=== PATIENT | male | born 1950 | race Caucasian/White ===

== ENCOUNTER 2016-10-06 08:21 | Day surgery (SDC) | payer MEDICARE, BC ==
--- NOTE | ~2016-10-06 | OP ---
Record Of Operation [facility] [address] [place]. [address] NAME: DAISHA QUIÑONEZ : 50 STATUS : [facility]#: [id number] AGE: 66 ADM/REG DATE : 10/06/16 MR#: [id number] REPORT SERV DATE: 10/10/16 DICTATED BY: CARTER SANCHEZ DATE: 10/10/16 REPORT STATUS : Draft TRANSCRIBED BY: MODL DATE: 10/10/16 DATE OF PROCEDURE: 10/06/2016 PREOPERATIVE DIAGNOSIS: Postoperative hematoma, right inguinal hernia repair site. POSTOPERATIVE DIAGNOSES: Postoperative hematoma, right inguinal hernia repair site. PROCEDURE: Incision and drainage, irrigation, culture and packing of postoperative hematoma right inguinal hernia repair site. SURGEON: Carter Sanchez M.D. DESCRIPTION OF OPERATIVE PROCEDURE: The patient is several weeks following laparoscopic bilateral inguinal hernia repair. He had a large indirect hernia on the right and after reduction of this hernia, it was noted that the patient had the unfortunately developed a large postoperative hematoma/seroma in the right inguinal canal. The aspiration attempts in the office were futile due to the thick nature of the hematoma and due to the patient's unremitting pain, decision was made to proceed with evacuation. The patient was brought to operating suite, placed in supine position, underwent anesthesia without incident. The skin of the right inguinal femoral area was scrubbed, prepped, and draped in usual sterile fashion. About 0.5% Marcaine with epinephrine was utilized as supplemental local anesthesia. A transverse skin incision was performed dissecting through the skin, subcutaneous tissue, dissecting through Alfred's fascia. There was immediate note of a large gelatinous "currant jelly" hematoma that was organizing. It was evacuated bluntly and with copious irrigation. There was no oozing, and there was no hernia recurrence. In fact, the hernia repair was intact which had been performed laparoscopically. A C and S was performed. Then, the wound was irrigated again and debrided bluntly with a gauze 4 x 4. Moist Kerlix rolled gauze packing was placed in the wound followed by ABD pad, and Medipore tape. The patient tolerated the procedure well, was returned to PACU in stable condition. At the termination of procedure, sponge, needle, lap instrument counts were correct x3. ESTIMATED BLOOD LOSS: Less than 10-15 mL from the actual procedure. WR/ROBERTO CARLOSL Carter Sanchez M.D. Record Of Operation [facility] [address] [facility] [place] [address] NAME: DAISHA QUIÑONEZ : 50 STATUS : [facility] PAT#: [id number] AGE: 66 ADM/REG DATE : 10/06/16 MR#: [id number] REPORT SERV DATE: 10/10/16 DICTATED BY: CARTER SANCHEZ DATE: 10/10/16 REPORT STATUS : Draft TRANSCRIBED BY: TIM DATE: 10/10/16 / [id number] CC: Tevin Lopez M.D.
[~2016-10-06 08:21] MED LIST: ASAB PO; CRESTOR40 MG PO; FIBERCON PO; FLEX PO; MIRALAXPKT PO; MULTIPLE VIT PO; PLAVIX PO
[2016-10-06 09:42] LABS: HEMOGLOBIN 10.2 g/dL (13.6-17.8)
[2016-10-06 09:45] LABS: HEMATOCRIT 30.8 % (40.0-51.0)
[2016-10-06 10:10] LABS: BUN (BLOOD UREA NITROGEN) 10 MG/DL (6-23); CALCIUM, SERUM 9.3 MG/DL (8.5-10.4); CHLORIDE, SERUM 103 MMOL/L (96-112); CO2 (CARBON DIOXIDE) 30 MMOL/L (24-34); CREATININE 0.89 MG/DL (0.70-1.30); GFR AFRICAN AMERICAN 103 ML/MIN (>=60); GFR NON AFRICAN AMERICAN 89 ML/MIN (>=60); GLUCOSE, SERUM 93 MG/DL (60-99); POTASSIUM, SERUM 4.4 MMOL/L (3.5-5.3); SODIUM, SERUM 142 MMOL/L (135-148)
== END 2016-10-06 16:08 | disposition home or self-care (01) ==
LOC: SDC 08:21
PROVIDERS: Specialist
PROC: 099R3ZZ Drainage of Left Maxillary Sinus, Percutaneous Approach (ICD-10-PCS; 2016-10-06)
PROC: 099Q3ZZ Drainage of Right Maxillary Sinus, Percutaneous Approach (ICD-10-PCS; 2016-10-06)
PROC: 09QM4ZZ Repair Nasal Septum, Percutaneous Endoscopic Approach (ICD-10-PCS; principal; 2016-10-06 09:30)
DX: J32.0 Chronic maxillary sinusitis (principal); J34.2 Deviated nasal septum; I10 Essential (primary) hypertension; K21.9 Gastro-esophageal reflux disease without esophagitis; Z85.6 Personal history of leukemia; Z92.21 Personal history of antineoplastic chemotherapy; Z79.82 Long term (current) use of aspirin; Z79.899 Other long term (current) drug therapy; Z88.5 Allergy status to narcotic agent
CPT/HCPCS: 80048; 85014; 85018; 87070; 87075; 87205; A9270-GY; J0690; J2250; J2370; J2405; J3010

== ENCOUNTER 2017-01-16 21:16 | Inpatient (IN) | payer MEDICARE, BC ==
--- NOTE | ~2017-01-16 | DS ---
Discharge Summary [facility] [address] [place]. [address] NAME: DAISHA QUIÑONEZ : 50 STATUS : DIS IN PAT#: [id number] AGE: 66 ADM/REG DATE : 01/16/17 MR#: [id number] REPORT SERV DATE: 01/19/17 DICTATED BY: KALYN VIZCAINO DATE: 01/18/17 REPORT STATUS : Draft TRANSCRIBED BY: MODL DATE: 01/18/17 ADMISSION DATE: 01/16/2017 DISCHARGE DATE: 01/18/2017 DISCHARGE DIAGNOSES: 1. Symptomatic anemia, present on admission, improved. 2. Thrombocytopenia, present on admission. 3. Chronic monocytic leukemia, followed by Dr. Washburn. 4. Chest pain due to symptomatic anemia. 5. Acute kidney injury, resolved. CONSULTATION: Oncology, Dr. Washburn. LABORATORY DATA: WBC is 25.6, hemoglobin 8.7, hematocrit 25.9, platelet count is 49. IMAGIN. Chest x-ray, 01/16/2017: Impression, no acute process. 2. Abdominal ultrasound, 01/17/2017: Impression, gallbladder removed. Common bile duct normal. Kidneys unremarkable. No obstruction. Pancreas normal. Mild progression in splenomegaly. Aorta and vena cava unremarkable. 3. Chest x-ray, 01/17/2017: Impression, no acute cardiopulmonary. 4. Nuclear stress test. 5. Imaging demonstrated no ischemia. Post effusion LVEF 56%. Overall low risk of vasodilator stress test. COURSE OF HOSPITAL STAY: Please refer to history and physical dictated by Dr. Chris Alves on 01/17/2017 for complete admission details as well as consultation note by Dr. Washburn. This patient is a 66-year-old male, who presented to [facility] emergency room with complaints of near syncope, fatigue, chest pain, and worsening anemia. He does present with a history of chronic monocytic leukemia, followed by Dr. Washburn. The patient was evaluated. Imaging obtained, which is noted above as well as lab work. The patient's hemoglobin upon admission was 7.3 and hematocrit of 21.9. The patient was typed and crossed for two units of blood, which he received. He did undergo the above procedures. Following the patient's blood, the patient denied chest pain, was able to ambulate without difficulty. The patient will follow up with Dr. Washburn outpatient, do believe that symptoms were due to the patient's anemia. The patient's acute kidney injury was resolved. Chest pain resolved. Anemia and thrombocytopenia will be followed by Dr. Washburn. This discharge took less than 30 minutes. /TIM Discharge Summary [address] [address] NAME: DAISHA QUIÑONEZ : 50 STATUS : DIS IN PAT#: [id number] AGE: 66 ADM/REG DATE : 01/16/17 MR#: [id number] REPORT SERV DATE: 01/19/17 DICTATED BY: KALYN VIZCAINO DATE: 01/18/17 REPORT STATUS : Draft TRANSCRIBED BY: TIM DATE: 01/18/17 Kalyn Vizcaino NP / [id number] CC: MD Tyson Sherwood M.D.
--- NOTE | ~2017-01-16 | HP ---
History And Physical [address] [place]. [address] NAME: DAISHA QUIÑONEZ : 50 STATUS : ADM IN [facility]#: [id number] AGE: 66 ADM/REG DATE : 01/16/17 MR#: [id number] REPORT SERV DATE: 01/17/17 DICTATED BY: LEBRON DELGADILLO DATE: 01/17/17 REPORT STATUS : Draft TRANSCRIBED BY: MODL DATE: 01/17/17 DATE OF ADMISSION: 01/16/2017 CHIEF COMPLAINT: A 66-year-old male presenting with near syncope, fatigue, and chest pain, evidence of worsening anemia. HISTORY OF PRESENTING ILLNESS: The patient's history was obtained through an interview with the patient and , coupled with review of [facility] medical records. The patient has noticed increasing fatigue over the last month or so, but it has not been too debilitating and has not limited him from his regular activities. In fact, just on 01/13/2017, he played a complete game of golf without too much disability or complaints. But on the evening of admission, he was walking (which is his usual habit) with his when he became "pale in color" and developed exertional chest discomfort. He describes chest discomfort is in the middle of his chest, radiation to his bilateral neck area, a tightness quality, 5/10 severity that was relieved by resting. He had no associated shortness of breath. No nausea or vomiting. No palpitations. No lightheadedness. No dizziness. He has noticed over the last month or so increasing abdominal "bloating" with a slight left midquadrant abdominal discomfort, worsened by deep breathing, about 4 to 5 out of 10 severity only. REVIEW OF SYSTEMS: Otherwise, a 14-point review of systems was obtained and was negative. PAST MEDICAL HISTORY: 1. Chronic monocytic leukemia, followed by Dr. Washburn. We have documented white blood cell count of about 12.8 a year ago. 2. Coronary artery disease, status post stent placement x3, followed by Dr. Hendrickson. 3. Left bundle-branch block. 4. Macrocytic anemia. 5. Mild splenomegaly, 2016. 6. Cholelithiasis. 7. Prostate cancer, 2007, status post surgery, but no chemotherapy, no radiation. 8. No lung disease history. PAST SURGICAL HISTORY: 1. Right hernia repair. 2. Prostatectomy. ALLERGIES: NO KNOWN DRUG ALLERGIES. History And Physical [address] [address] NAME: DAISHA QUIÑONEZ : 50 STATUS : ADM IN PAT#: [id number] AGE: 66 ADM/REG DATE : 01/16/17 MR#: [id number] REPORT SERV DATE: 01/17/17 DICTATED BY: LEBRON DELGADILLO DATE: 01/17/17 REPORT STATUS : Draft TRANSCRIBED BY: TIM DATE: 01/17/17 SOCIAL HISTORY: Quit smoking about 40 years ago. Drinks occasional beer. Is . Has two children. He is semiretired. 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 FAMILY HISTORY: Brother and mother both had CABG. Father with coronary artery disease as well. There is no family history of blood disorders. CURRENT MEDICATIONS: Include aspirin 81 mg p.o. daily, Plavix 75 mg p.o. daily, multivitamin, Crestor 40 mg p.o. daily, some kind of [id number] medication? PHYSICAL EXAMINATION: VITAL SIGNS: Temperature 97.6, pulse 96, blood pressure 120/59, respiratory rate 16, O2 saturation 97% on room air. GENERAL: A nontoxic-appearing, an appropriate, cooperative male, in no evidence of distress. HEENT: Pupils equal, round, and reactive to light. The patient has conjunctival pallor, but no scleral icterus. Nares are patent. Oropharynx is clear of obstruction. Moist mucous membranes. NECK: Trachea midline. No thyromegaly. LYMPH: No cervical lymphadenopathy. No supraclavicular lymphadenopathy. RESPIRATORY: Clear to auscultation at bases. No wheezes, rales, or rhonchi. Normal respiratory effort. CARDIOVASCULAR: Regular rate and rhythm. No murmurs, rubs, or gallops. No extremity edema is appreciated. ABDOMEN: The patient does have a palpable spleen that is minimally tender to palpation. No distention otherwise. No tenderness otherwise. No appreciable hepatomegaly. DERMATOLOGICAL: Warm and dry extremities. The patient has peripheral pallor, but no cyanosis. PSYCHIATRIC: Normal affect. Good mood. Alert and oriented x3. LABORATORY DATA: White blood cell count 32.5 with elevated monocytes and elevated neutrophils, hemoglobin 7.3, hematocrit 21.9 with MCV of 108. INR 1.7. Sodium 141, potassium 3.9, chloride 105, bicarb 28, BUN 11, creatinine 1.25 from baseline creatinine of 0.8, glucose 110, troponin negative. STUDIES: 1. Chest x-ray by my own evaluation shows no acute cardiopulmonary process. 2. EKG by my own evaluation shows sinus rhythm with left bundle-branch block. ASSESSMENT AND PLAN: 1. Symptomatic anemia. We will transfuse blood. Check reticulocyte count. Check LDH and haptoglobin. Check a peripheral smear. Check an ultrasound of the abdomen. 2. Thrombocytopenia. Follow closely. Check ultrasound of the abdomen to evaluate possible splenomegaly. 3. Monocytic chronic leukemia. There is always the possibility of progression to AML? We will consult oncologist, Dr. Washburn. I did discuss the case with Dr. Arteaga over the phone this evening. History And Physical [address] [address] NAME: DAISHA QUIÑONEZ : 50 STATUS : ADM IN [facility]#: [id number] AGE: 66 ADM/REG DATE : 01/16/17 MR#: [id number] REPORT SERV DATE: 01/17/17 DICTATED BY: LEBRON DELGADILLO DATE: 01/17/17 REPORT STATUS : Draft TRANSCRIBED BY: MODL DATE: 01/17/17 4. Chest pain with history of coronary artery disease with multiple stents. We will check a stress test. Continue Plavix and aspirin for now until able to rule out active coronary artery disease. 5. Acute kidney injury. Give blood transfusion, give IV fluids, and monitor. KPL/MODL Lebron Delgadillo M.D. / [id number] CC: Tevin Acevedo M.D. David Wendt, M.D. Mark S Womack IV, M.D.
[2017-01-16 21:39] LABS: INTERNATIONAL NORMAL RATI 1.7 UNITS (-); PARTIAL THROMBO TIME 35.6 SEC (22.5-37.2); PROTIME (NOT ORD) 19.6 SEC (12.0-14.5)
[2017-01-16 21:40] LABS: MEAN CORPUS HGB CONC 33.3 g/dL (32.0-36.0); MEAN CORPUSCULAR HEMOGLOB 36.1 pg (26.0-34.0); MEAN CORPUSCULAR VOLUME 108.4 fL (80-100); MEAN PLATELET VOLUME 9.3 fL (9.2-13.0); NUCLEATED RED BLOOD CELLS 1.2 /100WBC (0-0); RBC DISTRIBUTION WIDTH 18.2 % (12.0-16.0)
[2017-01-16 21:41] LABS: ER CBC TAT 0 Hrs 16 Mins; HEMATOCRIT 21.9 % (40.0-51.0); HEMOGLOBIN 7.3 g/dL (13.6-17.8); PLATELET COUNT 64 10/3/uL (150-400); RED CELL COUNT 2.02 10/6/uL (4.7-6.1); WHITE BLOOD CELLS 32.5 10/3/uL (4.5-10.5)
[2017-01-16 21:42] LABS: MANUAL DIFF YES %
[2017-01-16 21:45] LABS: BUN (BLOOD UREA NITROGEN) 11 MG/DL (6-23); CALCIUM, SERUM 8.7 MG/DL (8.5-10.4); CHEST PAIN PROFILE TAT 0 Hrs 20 Mins; CHLORIDE, SERUM 105 MMOL/L (96-112); CO2 (CARBON DIOXIDE) 28 MMOL/L (24-34); CREATININE 1.25 MG/DL (0.70-1.30); GFR AFRICAN AMERICAN 69 ML/MIN (>=60); GFR NON AFRICAN AMERICAN 60 ML/MIN (>=60); GLUCOSE, SERUM 110 MG/DL (60-99); POTASSIUM, SERUM 3.9 MMOL/L (3.5-5.3); SODIUM, SERUM 141 MMOL/L (135-148); TROPONIN I <0.02 NG/ML (<0.05)
[2017-01-16 22:03] LABS: BAND NEUTROPHILS 9 %; ER DIFF TAT 0 Hrs 38 Mins; IMMATURE GRANS ABSOLUTE (CALC) 0.98 10/3/uL (0.0-0.11); LYMPHOCYTES 15 %; LYMPHOCYTES ABSOLUTE (CALC) 4.88 10/3/uL (0.67-4.30); MACROCYTES 1+ (5-10/OIF) (0-5/OIF); METAMYELOCYTES 3 %; MONOCYTES 17 %; MONOCYTES ABSOLUTE (CALC) 5.53 10/3/uL (0.21-1.20); NEUTROPHILS ABSOLUTE (CALC) 21.13 10/3/uL (2.02-8.40); SEGMENTED NEUTROPHIL (0) 56 %; TOTAL NUCLEATED CELLS 100
[2017-01-16 22:04] LABS: ANISOCYTOSIS 1+ (5-10/OIF) (0-5/OIF); PATH REVIEW YES; PLATELET ESTIMATE DEC (ADEQUATE); POLYCHROMASIA 1+ (2-5/OIF) (0-1/OIF)
[2017-01-16] MEDS ORDERED: CRESTOR40 MG PO (23:19)
[2017-01-16] MEDS ORDERED: ASAB PO (23:19)
[2017-01-16] MEDS ORDERED: PLAVIX PO (23:19)
[2017-01-16] MEDS ORDERED: [UNRECOGNIZED DRUG - OTHER] PO (23:20)
[2017-01-16] MEDS ORDERED: MULTIVIT/MIN PO (23:21)
[2017-01-17 06:38] LABS: HEMATOCRIT 22.2 % (40.0-51.0); HEMOGLOBIN 7.3 g/dL (13.6-17.8); MEAN CORPUS HGB CONC 32.9 g/dL (32.0-36.0); MEAN CORPUSCULAR HEMOGLOB 34.6 pg (26.0-34.0); MEAN CORPUSCULAR VOLUME 105.2 fL (80-100); MEAN PLATELET VOLUME 9.3 fL (9.2-13.0); PLATELET COUNT 54 10/3/uL (150-400); RED CELL COUNT 2.11 10/6/uL (4.7-6.1); RETICULOCYTE COUNT 2.6 % (0.5-2.5)
[2017-01-17 06:39] LABS: RETICULOCYTE COUNT ABSOLUTE 54.9 10/3/uL (20.2-119.8); WHITE BLOOD CELLS 27.9 10/3/uL (4.5-10.5)
[2017-01-17 06:40] LABS: INTERNATIONAL NORMAL RATI 1.8 UNITS (-); MANUAL DIFF YES %; PARTIAL THROMBO TIME 36.1 SEC (22.5-37.2); PROTIME (NOT ORD) 20.7 SEC (12.0-14.5)
[2017-01-17 07:03] LABS: A/G RATIO 1.2 (0.7-1.9); ALBUMIN 3.4 G/DL (3.5-5.0); ALKALINE PHOSPHATASE 90 U/L (45-117); BUN (BLOOD UREA NITROGEN) 11 MG/DL (6-23); CALCIUM, SERUM 8.5 MG/DL (8.5-10.4); CHLORIDE, SERUM 106 MMOL/L (96-112); CO2 (CARBON DIOXIDE) 29 MMOL/L (24-34); CREATININE 1.03 MG/DL (0.70-1.30); GFR AFRICAN AMERICAN 87 ML/MIN (>=60); GFR NON AFRICAN AMERICAN 75 ML/MIN (>=60); GLOBULIN 2.8 G/DL (2.5-4.1); GLUCOSE, SERUM 92 MG/DL (60-99); POTASSIUM, SERUM 3.9 MMOL/L (3.5-5.3); SGOT(AST) 17 U/L (5-40); SGPT(ALT) 13 U/L (5-65); SODIUM, SERUM 143 MMOL/L (135-148); TOTAL BILIRUBIN 0.4 MG/DL (0-1.2); TOTAL PROTEIN 6.2 G/DL (6.0-8.5); TROPONIN I <0.02 NG/ML (<0.05)
[2017-01-17 07:09] LABS: BAND NEUTROPHILS 10 %; LYMPHOCYTES 13 %; LYMPHOCYTES ABSOLUTE (CALC) 3.63 10/3/uL (0.67-4.30); METAMYELOCYTES 4 %; MONOCYTES 16 %; MONOCYTES ABSOLUTE (CALC) 4.46 10/3/uL (0.21-1.20); MYELOCYTES 1 %; NEUTROPHILS ABSOLUTE (CALC) 18.41 10/3/uL (2.02-8.40); NUCLEATED RED BLOOD CELLS 1 /100WBC (0); SEGMENTED NEUTROPHIL (0) 56 %; TOTAL NUCLEATED CELLS 100
[2017-01-17 07:10] LABS: ANISOCYTOSIS 1+ (5-10/OIF) (0-5/OIF); HYPOCHROMIA 1+ (3-10/OIF) (0-2/OIF); MACROCYTES 1+ (5-10/OIF) (0-5/OIF); PLATELET ESTIMATE DEC (ADEQUATE)
[2017-01-17 10:08] LABS: PROCALCITONIN 0.39 ng/mL (<0.5)
[2017-01-18 06:31] LABS: HEMOGLOBIN 8.7 g/dL (13.6-17.8); MEAN CORPUS HGB CONC 33.6 g/dL (32.0-36.0); MEAN PLATELET VOLUME 9.3 fL (9.2-13.0); NUCLEATED RED BLOOD CELLS 1.3 /100WBC (0-0); RBC DISTRIBUTION WIDTH 22.1 % (12.0-16.0)
[2017-01-18 06:38] LABS: HEMATOCRIT 25.9 % (40.0-51.0); MEAN CORPUSCULAR VOLUME 101.2 fL (80-100); PLATELET COUNT 49 10/3/uL (150-400); RED CELL COUNT 2.56 10/6/uL (4.7-6.1); WHITE BLOOD CELLS 25.6 10/3/uL (4.5-10.5)
[2017-01-18 06:39] LABS: MANUAL DIFF YES %
[2017-01-18 06:56] LABS: ANISOCYTOSIS 1+ (5-10/OIF) (0-5/OIF); BAND NEUTROPHILS 7 %; IMMATURE GRANS ABSOLUTE (CALC) 1.54 10/3/uL (0.0-0.11); LYMPHOCYTES 11 %; LYMPHOCYTES ABSOLUTE (CALC) 2.82 10/3/uL (0.67-4.30); MACROCYTES 1+ (5-10/OIF) (0-5/OIF); METAMYELOCYTES 3 %; MONOCYTES 13 %; MONOCYTES ABSOLUTE (CALC) 3.33 10/3/uL (0.21-1.20); MYELOCYTES 3 %; NEUTROPHILS ABSOLUTE (CALC) 17.92 10/3/uL (2.02-8.40); PLATELET ESTIMATE DEC (ADEQUATE); RBC MORPHOLOGY ABN (NORMAL); SEGMENTED NEUTROPHIL (0) 63 %; TOTAL NUCLEATED CELLS 100
== END 2017-01-18 15:38 | disposition home or self-care (01) | DRG 812 ==
LOC: ER 21:16 → 2SO 23:46
PROVIDERS: Hospitalist; Nurse Practitioner Adult Health; Specialist
DX: D64.9 Anemia, unspecified (principal); N17.9 Acute kidney failure, unspecified; C93.10 Chronic myelomonocytic leukemia not having achieved remission; D69.6 Thrombocytopenia, unspecified; I25.10 Atherosclerotic heart disease of native coronary artery without angina pectoris; Z95.5 Presence of coronary angioplasty implant and graft; Z85.46 Personal history of malignant neoplasm of prostate; Z98.890 Other specified postprocedural states; Z87.891 Personal history of nicotine dependence; Z82.49 Family history of ischemic heart disease and other diseases of the circulatory system; I44.7 Left bundle-branch block, unspecified; R07.9 Chest pain, unspecified
CPT/HCPCS: 36415; 36430; 71010; 71020; 76700; 78452; 80048; 80053; 83010; 83615; 83735; 83880; 84145; 84443; 84484; 85007; 85025; 85027; 85045; 85610; 85730; 86850; 86900; 86901; 86920; 88305; 88311; 88313; 88360; 93005; 93017; 99285; A9270-GY; A9502; J0153; P9016

== ENCOUNTER 2017-01-25 15:37 | Inpatient (IN) | payer MEDICARE, BC ==
--- NOTE | ~2017-01-25 | DS ---
Discharge Summary [facility] [address] [place]. [address] NAME: DAISHA QUIÑONEZ : 50 STATUS : DIS IN PAT#: [id number] AGE: 66 ADM/REG DATE : 01/25/17 MR#: [id number] REPORT SERV DATE: 01/30/17 DICTATED BY: DATE: REPORT STATUS : Draft TRANSCRIBED BY: MODL DATE: 01/30/17 ADMISSION DATE: 01/25/2017 DISCHARGE DATE: 01/30/2017 DATE AND TIME OF : 01/29/2017 at 2127 hours. HOSPITAL COURSE: The patient was a 66-year-old male with a history of chronic myelomonocytic leukemia, not having achieved remission, diagnosed in December 2013, coronary artery disease, status post stent placement x3, chronic anemia, and prostate cancer diagnosed in 2006. The patient was admitted to the hospital on 01/25/2017 with chief complaint of diplopia with dizziness and difficulty maintaining balance with ambulation, acute onset. Prior to admission, a CT of the brain without contrast was performed as an outpatient at [facility] on the morning of admission. Impression indicated several bilateral hypodense metastatic brain lesions. Largest lesion in the right thalamus measured 1.7 cm. There were 9 and 6 mm lesions in the right mid brain with extensive associated vasogenic edema. No midline shift noted. An MRI of the brain was ordered upon admission. Report indicated hypodense metastatic lesion on CT, very hyperintense on MRI, and some increase in size even from 01/25/2017 suggesting continued hemorrhage. The new diagnosis of likely brain mets was of unclear etiology with no primary source identified. Infectious Disease was consulted to assist in ruling out possible PAYABLE MANAGER infection. Infectious Disease reported that it was most likely metastatic disease given the number of lesions which makes infection much less likely. [facility] followed the patient daily. No clear etiology was ever identified pertaining to brain metastases; however, it was believed most likely related to melanoma secondary to presentation to include aggressive progressive disease with hemorrhage. The patient also developed acute disseminated intravascular coagulation most likely related to hemorrhagic brain metastases. D-dimer and INR continued to increase with decreased fibrinogen despite transfusions to include fresh frozen plasma and platelets. On the morning of 01/29/2017, the patient was essentially unresponsive. Oncology and Hospitalist met with the patient's spouse and family to discuss the patient's extremely poor prognosis with no hope for curative intent. At that time, family agreed to focus care on comfort and supportive measures only for end of life care in the setting of terminal phase of disease process. CAUSE OF : New diagnosis of brain metastases with multiple hemorrhagic lesions with no clear primary source identified in the setting of acute disseminated intravascular coagulation most likely related to hemorrhagic brain metastases. Discharge Summary [address] [place]. [address] NAME: DAISHA QUIÑONEZ : 50 STATUS : DIS IN PAT#: [id number] AGE: 66 ADM/REG DATE : 01/25/17 MR#: [id number] REPORT SERV DATE: 01/30/17 DICTATED BY: DATE: REPORT STATUS : Draft TRANSCRIBED BY: TIM DATE: 01/30/17 [facility]/TIM Lyn Herbert [employer] SALESPERSON-C / [id number] CC: MD Tyson Rodriguez II, M.D.
--- NOTE | ~2017-01-25 | HP ---
History And Physical [facility] [address] [facility] [place]. [address] NAME: DAISHA QUIÑONEZ : 50 STATUS : ADM IN PAT#: [id number] AGE: 66 ADM/REG DATE : 01/25/17 MR#: [id number] REPORT SERV DATE: 01/26/17 DICTATED BY: DATE: REPORT STATUS : Draft TRANSCRIBED BY: MODL DATE: 01/25/17 DATE OF ADMISSION: 01/25/2017 POINT OF ENTRY: Direct admission, referred by Dr. Darryl Washburn, [facility]. PRIMARY ONCOLOGIST: Dr. Darryl Washburn, [facility]. PRIMARY SOCIAL WORK MANAGER: Dr. Flako Hendrickson of [facility]. HISTORY OF PRESENTING ILLNESS: The patient's history was obtained through interview with the patient and his spouse, coupled with review of [facility] records and office note provided by [facility], dated 11/08/2016. Per the patient's request, majority of health history was obtained through interview with the spouse. The patient is a 66-year-old male with a history of chronic myelomonocytic leukemia, not having achieved remission, diagnosed in 12/2015; coronary artery disease, status post stent placement x3; chronic anemia; and prostate cancer diagnosed in 2006. It is noteworthy to mention that the patient was recently hospitalized at [facility] between the dates of 01/17/2017 and 01/19/2017. Chief complaint upon admission included near syncopal event, fatigue, and chest pain with evidence of worsening anemia. Discharge diagnoses included symptomatic anemia, thrombocytopenia, CMML, chest pain due to symptomatic anemia, and acute kidney injury resolved prior to discharge. The patient's reported that the patient had been "fairly weak" since his recent hospital discharge, but was doing fairly well. The patient returned to work yesterday and suffered an acute onset of diplopia with dizziness around 05:30 p.m. last night. The patient also began exhibiting difficulty maintaining balance with ambulation. The patient reports that if he covers either eye, the double vision is corrected. He describes his acute change in vision as seeing "two of everything." stated the patient is having difficulty maintaining upright position and veers severely to either right or left while attempting to ambulate. REVIEW OF SYSTEMS: CONSTITUTIONAL: No fever or sweats. EYES: Acute onset of double vision within the past 24 hours. HEENT: No headache or hearing loss. CARDIOVASCULAR: No chest pain, palpitations, syncopal, or near syncopal episodes. RESPIRATORY: No cough, wheezing, or shortness of breath. GASTROINTESTINAL: No nausea, vomiting, abdominal pain, or constipation. MUSCULOSKELETAL: No arthralgia, myalgia, or arthritis. INTEGUMENT: No rash or nonhealing wounds. NEUROLOGIC: Positive for acute onset of diplopia, dizziness, and gait disturbance. No history of stroke, TIA, or seizure. History And Physical [address] [address] NAME: DAISHA QUIÑONEZ : 50 STATUS : ADM IN [facility]#: [id number] AGE: 66 ADM/REG DATE : 01/25/17 MR#: [id number] REPORT SERV DATE: 01/26/17 DICTATED BY: DATE: REPORT STATUS : Draft TRANSCRIBED BY: TIM DATE: 01/25/17 HEMATOLOGIC: Positive for chronic anemia. PSYCHIATRIC: No history of depression, bipolar, anxiety. : No dysuria or hematuria. ENDOCRINE: No diabetes or thyroid disease. HOME MEDICATIONS: 1. Aspirin 81 mg tablet p.o. every morning. 2. Plavix 75 mg tablet p.o. every morning. 3. One multivitamin p.o. every morning. 4. Crestor 40 mg tablet p.o. daily at bedtime. 5. Over the counter Resetigen-D capsule p.o. daily. ALLERGIES: NO KNOWN DRUG ALLERGIES. PAST MEDICAL HISTORY: 1. Chronic myelomonocytic leukemia. 2. Coronary artery disease, status post stent placement x3. 3. Left bundle-branch block. 4. Chronic anemia. 5. Mild splenomegaly. 6. Cholelithiasis. 7. Prostate cancer in 2006, no chemotherapy or radiation therapy. PAST SURGICAL HISTORY: 1. Cholecystectomy in 2016. 2. Bilateral inguinal hernia repair, 09/21/2016. 3. Prostatectomy. 4. Postop hematoma incision and drainage, status post right inguinal hernia repair, 10/10/2016. SOCIAL HISTORY: The patient has been for 47 years. He has two children. 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 He is remote tobacco user having stop smoking approximately 40 years ago. Rare use of alcohol. FAMILY HISTORY: The patient's mother in her early 80s with a history of heart disease and Alzheimer's. The patient's father in his early 70s, cause of unknown. PHYSICAL EXAMINATION: VITAL SIGNS: The patient weighs 72.77 kg and is 5 feet 11 inches tall. Oxygen saturation 98% on room air, blood pressure 116/63, temperature 97.8, heart rate 74. NEURO: The patient is drowsy, but arouses easily to verbal stimulation. Tongue is midline. No pronator drift. Bilateral upper and lower extremities strength equal and intact. Pupils approximately 2 to 3 mm. Difficulty assessing extraocular movement and vision secondary to subjective complaint of diplopia. GENERAL: The patient is drowsy, but awake, alert, and oriented x3. Cooperative. Defers to to answer majority of health history questions. NECK: No lymphadenopathy. History And Physical [address] [address] NAME: DAISHA QUIÑONEZ : 50 STATUS : ADM IN [facility]#: [id number] AGE: 66 ADM/REG DATE : 01/25/17 MR#: [id number] REPORT SERV DATE: 01/26/17 DICTATED BY: DATE: REPORT STATUS : Draft TRANSCRIBED BY: MODL DATE: 01/25/17 CHEST: No tenderness to palpation. LUNGS: Clear throughout to anterior auscultation. Normal work of breathing. No wheezes. No rhonchi. CARDIOVASCULAR: Regular rate and rhythm with no murmurs, rubs, or gallops. ABDOMEN: Soft and nontender. Mild splenomegaly. Bowel sounds present in all four quadrants. EXTREMITIES: Trace edema to bilateral lower extremities. PSYCH: Normal affect. IMAGING: Obtained prior to admission: 1. CT of brain without contrast on 12/26/2016, ordered by Dr. Darryl Washburn at [facility]. Impression: Several bilateral hypodense of metastatic brain lesions. Largest lesion is in the right thalamus measuring 1.7 cm. There were 9 mm and 6 mm lesions in the right mid brain with extensive associated vasogenic edema. The ventricles are normal size and configuration. There is no midline shift. ASSESSMENT AND PLAN: 1. New diagnosis metastatic brain nodules with extensive associated vasogenic edema. This is new finding per CT of the brain obtained today prior to direct admission. Initiate Decadron 4 mg IV every eight hours and neuro checks every four hours. MRI of brain without IV contrast and CT of chest, abdomen, and pelvis with contrast is pending. Plan of care will be determined per Dr. Darryl Washburn at [facility]. 2. Acute onset of diplopia. Per the patient's subjective report, diplopia is corrected with covering either eye. This is most likely related to new diagnosis of metastatic brain lesions. 3. Acute onset of dizziness with gait abnormality. Fall precautions have been initiated. Symptoms likely related to new diagnosis of metastatic brain lesions. Physical Therapy will be consulted for evaluation and treat for recommendations of fall risk reduction once imaging is completed. 4. 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 This plan of care is managed per Dr. Darryl Washburn at [facility]. 5. Coronary artery disease. The patient is status post placement of stents x3. Continue home dose of Plavix and aspirin. The patient is followed on an outpatient basis by Dr. Hendrickson at [facility]. The patient underwent nuclear stress test on 01/17/2017. Records have been requested. 6. Chronic anemia. The patient was recently admitted on 01/18/2017 with symptomatic anemia. Transfuse as needed for hemoglobin 7 or below. 7. Mild splenomegaly. The patient underwent abdominal ultrasound on 12/28/2016 during previous admission. Splenomegaly was noted. Comparison of CT scan done in October of this year demonstrated the spleen measuring 15.8 cm. 01/17/2017 exam noted spleen to measures 17.4 cm, slightly larger. Exact etiology of splenomegaly is unclear. Abdominal ultrasound also reported noncystic structure in the liver probable benign hemangioma; however, in the face of splenomegaly. Recommendation included consideration of a followup dynamic MR or CT. Care of this patient will be transferred to the service of Dr. Marcelino Andres. History And Physical [address] [address] NAME: DAISHA QUIÑONEZ : 50 STATUS : ADM IN [facility]#: [id number] AGE: 66 ADM/REG DATE : 01/25/17 MR#: [id number] REPORT SERV DATE: 01/26/17 DICTATED BY: DATE: REPORT STATUS : Draft TRANSCRIBED BY: MODHumera DATE: 01/25/17 [facility]/TIM Lyn Herbert NP-C / [id number] CC: MD Tyson Rodriguez II, M.D.
--- NOTE | ~2017-01-25 | CN ---
Consultation Report [facility] [address] [place]. [address] NAME: DAISHA QUIÑONEZ : 50 STATUS : ADM IN PAT#: [id number] AGE: 66 ADM/REG DATE : 01/25/17 MR#: [id number] REPORT SERV DATE: 01/27/17 DICTATED BY: KEYONNA MATOS DATE: 01/27/17 REPORT STATUS : Draft TRANSCRIBED BY: MODL DATE: 01/27/17 INFECTIOUS DISEASE CONSULT DATE OF CONSULTATION: 01/27/2017 REASON FOR CONSULTATION: Possible AIRCRAFT ASSEMBLER infection. 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 He was in his baseline state of health until 01/24/2017 when he had the acute onset of double vision and dizziness and trouble with balance. These symptoms led to an outpatient CT scan which showed several bilateral hypodense brain lesions suggestive of metastatic disease. There is no description of any calcifications and I do not see any on my review of this study. The patient was admitted and underwent MRI of the brain. This was a limited study secondary to the patient's ability to tolerate the procedure and contrast was not able to be given. Findings were of numerous AIRCRAFT ASSEMBLER lesions, approximately 20 small lesions with another largest lesion of 1.5 cm in the left anterior temporal lobe and 1.5 x 0.8 x 1.1 cm lesion in the left posterior parietal lobe. These have vasogenic edema and there was evidence of hemorrhage into some of them. Concern was raised for metastatic disease leading to a CT scan of the chest, abdomen, and pelvis which did not show any suspicious findings for cancer, although he does have splenomegaly. The patient denies any fevers, chills, or sweats. There are 1 or 2 skin lesions that are suspicious enough to be biopsied, but otherwise no major new skin problems. PAST MEDICAL HISTORY: As outlined above. He is followed by Dr. Washburn for his leukemia and has been just observed and does have associated anemia and thrombocytopenia. The patient also has a history of prostate cancer, treated in 2006 with prostatectomy. Other medical problems include coronary artery disease status post stents, cholelithiasis status post cholecystectomy, and bilateral inguinal hernia repairs complicated by hematomas. He was recently in the hospital in late December because of syncope symptoms and fatigue and acute kidney injury. ALLERGIES: NO KNOWN DRUG ALLERGIES. PRESENT MEDICATIONS: In the hospital include Lipitor, Decadron 4 mg IV q.8 hours, multivitamins, and MiraLAX. SOCIAL HISTORY: The patient is . 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 Distant smoking history. Rare alcohol consumption. The patient has traveled to [place] once about in 1999. Otherwise, no travel outside the country. He does enjoy a drag racing and playing golf. There are a couple of pet dogs, but no cat exposure. FAMILY HISTORY: The patient's father was admitted to the [facility] in the mid with Consultation Report [address] [id number] NAME: DAISHA QUIÑONEZ : 50 STATUS : ADM IN [facility]#: [id number] AGE: 66 ADM/REG DATE : 01/25/17 MR#: [id number] REPORT SERV DATE: 01/27/17 DICTATED BY: KEYONNA MATOS DATE: 01/27/17 REPORT STATUS : Draft TRANSCRIBED BY: TIM DATE: 01/27/17 suspected tuberculosis and family members were checked and the patient had a negative PPD then. It sounds like the father actually did not have active TB. Otherwise, no known exposure to tuberculosis. REVIEW OF SYSTEMS: As outlined above, otherwise negative. No unusual dietary habits. PHYSICAL EXAMINATION: VITAL SIGNS: The patient has been afebrile here. Blood pressure 102/56 to 150/67, pulse 82, respiratory rate 16. He weighs 73 kilos. GENERAL: He is alert, sitting up in a chair, in no acute distress. HEAD AND NECK: Shows some drooping of his right eye. There is a lesion on his scalp which looks most like an actinic keratosis or seborrheic keratosis. Neck is supple. No significant adenopathy. LUNGS: Clear to auscultation. CARDIAC: Regular rate and rhythm. Normal S1, S2. There is a soft 1-2/6 systolic murmur at left sternal border. ABDOMEN: Soft and nontender. EXTREMITIES: Without edema. He does have a very small dark papule of his left shoulder area. There is healing wound of his right forearm from an injury at work about a week ago. A few scattered ecchymoses. LABORATORY STUDIES: White blood cell count 20565, hemoglobin 8.2, platelets 75,000; differential, 65% segs, 14% bands, 7% lymphocytes, 9% metamyelocytes, 2% myelocytes, 1% eosinophils. Creatinine 0.93. Albumin 3.6. Liver function tests normal. LDH 448. Urinalysis is entirely negative. IMAGING STUDIES: As noted. IMPRESSION: I believe this is most likely metastatic disease. However, there is an infectious disease differential diagnosis. Given the number of lesions though, I think infection is much less likely. Must consider the possibility of cysticercosis. There are no calcifications on the CT scan. Other unlikely possibilities include tuberculomas, Nocardia, fungal pathogens, and toxoplasmosis. PLAN: We will check cysticercosis serology along with toxo serology, cryptococcal antigen, urine blasto and histo antigens, HIV and PPD. SANTIAGO/TIM Keyonna Matos M.D. Consultation Report [address] [address] NAME: DAISHA QUIÑONEZ : 50 STATUS : ADM IN [facility]#: [id number] AGE: 66 ADM/REG DATE : 01/25/17 MR#: [id number] REPORT SERV DATE: 01/27/17 DICTATED BY: KEYONNA MATOS DATE: 01/27/17 REPORT STATUS : Draft TRANSCRIBED BY: TIM DATE: 01/27/17 / [id number] CC: MD Tyson Rodriguez II, M.D. Mark S Womack IV, M.D.
--- NOTE | ~2017-01-25 | IDS ---
Interim Discharge Summary [facility] [address] [place]. [address] NAME: DAISHA QUIÑONEZ : 50 STATUS : ADM IN PAT#: [id number] AGE: 66 ADM/REG DATE : 01/25/17 MR#: [id number] REPORT SERV DATE: 01/29/17 DICTATED BY: DATE: REPORT STATUS : Draft TRANSCRIBED BY: MODL DATE: 01/29/17 ADMISSION DATE: 01/25/2017 DISCHARGE DATE: Interim summary covers dates of service between 01/26 and 01/29/2017. INTERIM DIAGNOSES: 1. New diagnosis of brain metastases, hemorrhagic. 2. Change in level of consciousness. 3. Comfort measures only. 4. Disseminated intravascular coagulation, acute. 5. Chronic myelomonocytic leukemia. 6. Diplopia/gait disturbance upon admission. CONSULTATIONS: 1. Dr. Darryl Washburn, [facility]. 2. Dr. Hema Matos, Infectious Disease 01/27/2017. CHIEF COMPLAINT UPON ADMISSION: Acute onset of diplopia with dizziness and gait disturbance. HOSPITAL COURSE: Please refer to history and physical provided by Lyn Herbert, nurse practitioner, dated 01/26/2017 for complete details pertaining to patient's initial presentation upon admission and health history. Please also refer to consultation dated 01/27/2017 provided by Hema Matos, Infectious Disease. Briefly, the patient is a 66-year-old male with a history of chronic myelomonocytic leukemia not having achieved remission; coronary artery disease, status post stent placement x3; chronic anemia; and prostate cancer diagnosed in 2006. The patient was referred by Dr. Darryl Washburn, [facility] for direct admission to [facility] on 12/26/2016 for further evaluation and treatment of acute onset of diplopia with dizziness and difficulty maintaining balance with ambulation. Prior to admission, a CT of the brain without contrast was performed as an outpatient. [facility] on 01/25, impression indicated several bilateral hypodense metastatic brain lesions. The largest lesion in the right thalamus measuring 1.7 cm. There were 9 and 6 mm lesions in the right mid brain with extensive associated vasogenic edema. No midline shift was noted. An MRI of the brain was ordered upon admission. Report indicated hypodense metastatic lesions on CT, are very hypointense on MRI and some increase in size even from yesterday suggesting continued hemorrhage. The patient has history of CMML with recent increased splenomegaly, however, there was no new obvious primary source identified for new diagnosis of metastatic hemorrhagic brain lesions. Infectious Disease was consulted to evaluate and rule out NANOTECHNOLOGIST infections. Interim Discharge Summary [facility] [id number] [place]. [address] NAME: DAISHA QUIÑONEZ : 50 STATUS : ADM IN PAT#: [id number] AGE: 66 ADM/REG DATE : 01/25/17 MR#: [id number] REPORT SERV DATE: 01/29/17 DICTATED BY: DATE: REPORT STATUS : Draft TRANSCRIBED BY: MODL DATE: 01/29/17 Throughout this admission, patient's neurological status has continued to decline. The patient's gait disturbance significantly worsened within 24 hours of admission and diplopia never resolved. Yesterday morning, the patient began complaining of a frontal headache. CT of the brain without contrast was obtained to rule out increasing hemorrhage. Impression indicated multifocal radiodense intra-axial lesions with new lesions in the left galarza radiata, left insular cortex, left midbrain, and left temporal lobe since 01/25 CT of the brain. Per Radiology, differential diagnosis included intraparenchymal hemorrhages, melanoma, lymphoma, or chloromas. Infectious Disease was consulted to assist in ruling out underlying NANOTECHNOLOGIST infections. Impression was that this is most likely metastatic disease given the number of lesions, which makes infection much less likely. Considerations per ID included tuberculomas, Nocardia, fungal pathogens, and toxoplasmosis. Blood was collected on 01/27 and final result today was negative for cryptococcus antigen. Within the past 24 hours, the patient now is essentially unresponsive. Dr. Lechuga, [facility] spoke with the patient's family members again this morning and transition is now complete for comfort and supportive measures only as the patient transitions into the terminal phase of disease process. 1. New brain metastases, hemorrhagic. No primary source has been identified, however, due to presentation to include aggressive-progressive disease with hemorrhage this is most likely related to melanoma. 2. Change in level of consciousness. The patient is essentially unresponsive, this is secondary to greater than 20 hemorrhagic brain lesions, rapidly increasing in number and size. 3. Comfort measures. The patient's spouse and family are in agreement that primary focus should be on comfort and supportive measures for end of life care. Continue morphine HAT CONDITIONER basal dose and increase as needed for restlessness, pain, and air hunger. 4. Acute disseminated intravascular coagulation. This is likely related to hemorrhagic brain metastases. The patient's D-dimer is elevated, fibrinogen is decreased, and INR is increased. Attempts were made to correct condition with transfusions to include fresh frozen plasma and platelets. Despite transfusions, D-dimer and INR continued to increase. No transfusions will be considered from this point forward. 5. Chronic myelomonocytic leukemia. The patient was under the outpatient care of Dr. Washburn at [facility]. Recent increase in splenomegaly was noted. CURRENT PLAN: The patient will most likely remain hospitalized through end of life. FERNANDO/TIM AAKASH Mares / [id number] Interim Discharge Summary [address] [address] NAME: DAISHA QUIÑONEZ : 50 STATUS : ADM IN [facility]#: [id number] AGE: 66 ADM/REG DATE : 01/25/17 MR#: [id number] REPORT SERV DATE: 01/29/17 DICTATED BY: DATE: REPORT STATUS : Draft TRANSCRIBED BY: TIM DATE: 01/29/17 CC: MD Tyson Rodriguez II, M.D.
[~2017-01-25 15:37] MED LIST changes: +MULTIVIT/MIN PO; +[UNRECOGNIZED DRUG - OTHER] PO
[2017-01-25 19:26] LABS: INTERNATIONAL NORMAL RATI 1.8 UNITS (-); PARTIAL THROMBO TIME 39.9 SEC (22.5-37.2); PROTIME (NOT ORD) 20.7 SEC (12.0-14.5)
[2017-01-25 19:38] LABS: A/G RATIO 1.6 (0.7-1.9); ALBUMIN 3.6 G/DL (3.5-5.0); ALKALINE PHOSPHATASE 87 U/L (45-117); BUN (BLOOD UREA NITROGEN) 13 MG/DL (6-23); CALCIUM, SERUM 8.6 MG/DL (8.5-10.4); CHLORIDE, SERUM 108 MMOL/L (96-112); CO2 (CARBON DIOXIDE) 30 MMOL/L (24-34); GFR AFRICAN AMERICAN 81 ML/MIN (>=60); GFR NON AFRICAN AMERICAN 70 ML/MIN (>=60); GLOBULIN 2.3 G/DL (2.5-4.1); GLUCOSE, SERUM 84 MG/DL (60-99); POTASSIUM, SERUM 4.2 MMOL/L (3.5-5.3); SGOT(AST) 20 U/L (5-40); SGPT(ALT) 17 U/L (5-65); SODIUM, SERUM 144 MMOL/L (135-148); TOTAL BILIRUBIN 0.4 MG/DL (0-1.2); TOTAL PROTEIN 5.9 G/DL (6.0-8.5)
[2017-01-25 19:50] LABS: BASOPHILS 0.4 %; BASOPHILS ABSOLUTE 0.14 10/3/uL (0.0-0.16); EOSINOPHILS 0.2 %; EOSINOPHILS ABSOLUTE 0.07 10/3/uL (0.0-0.53); LYMPHOCYTES 9.2 %; LYMPHOCYTES ABSOLUTE 2.99 10/3/uL (0.67-4.30); MEAN CORPUSCULAR HEMOGLOB 32.9 pg (26.0-34.0); MEAN CORPUSCULAR VOLUME 103.8 fL (80-100); MEAN PLATELET VOLUME 9.6 fL (9.2-13.0); NUCLEATED RED BLOOD CELLS 1.1 /100WBC (0-0)
[2017-01-25 19:53] LABS: HEMATOCRIT 21.8 % (40.0-51.0); HEMOGLOBIN 6.9 g/dL (13.6-17.8); MEAN CORPUS HGB CONC 31.7 g/dL (32.0-36.0); PLATELET COUNT 40 10/3/uL (150-400)
[2017-01-25 19:55] LABS: WHITE BLOOD CELLS 32.6 10/3/uL (4.5-10.5)
[2017-01-25 20:20] LABS: BAND NEUTROPHILS 6 %; LYMPHOCYTES 12 %; LYMPHOCYTES ABSOLUTE (CALC) 3.91 10/3/uL (0.67-4.30); MONOCYTES 23 %; NEUTROPHILS ABSOLUTE (CALC) 21.19 10/3/uL (2.02-8.40); SEGMENTED NEUTROPHIL (0) 59 %; TOTAL NUCLEATED CELLS 100
[2017-01-25 20:21] LABS: POIKILOCYTOSIS 1+ (5-10/OIF) (0-5/OIF); POLYCHROMASIA 1+ (2-5/OIF) (0-1/OIF)
[2017-01-25 20:22] LABS: MACROCYTES 1+ (5-10/OIF) (0-5/OIF)
[2017-01-26 03:37] LABS: MEAN CORPUSCULAR HEMOGLOB 34.3 pg (26.0-34.0); MEAN PLATELET VOLUME 9.5 fL (9.2-13.0); NUCLEATED RED BLOOD CELLS 1.1 /100WBC (0-0); RBC DISTRIBUTION WIDTH 20.9 % (12.0-16.0); RED CELL COUNT 2.45 10/6/uL (4.7-6.1)
[2017-01-26 03:38] LABS: BUN (BLOOD UREA NITROGEN) 11 MG/DL (6-23); CALCIUM, SERUM 8.4 MG/DL (8.5-10.4); CHLORIDE, SERUM 108 MMOL/L (96-112); CO2 (CARBON DIOXIDE) 29 MMOL/L (24-34); CREATININE 0.98 MG/DL (0.70-1.30); GFR AFRICAN AMERICAN 93 ML/MIN (>=60); GFR NON AFRICAN AMERICAN 80 ML/MIN (>=60); GLUCOSE, SERUM 128 MG/DL (60-99); HEMATOCRIT 24.6 % (40.0-51.0); HEMOGLOBIN 8.4 g/dL (13.6-17.8); MANUAL DIFF YES %; MEAN CORPUS HGB CONC 34.1 g/dL (32.0-36.0); MEAN CORPUSCULAR VOLUME 100.4 fL (80-100); PLATELET COUNT 37 10/3/uL (150-400); POTASSIUM, SERUM 4.2 MMOL/L (3.5-5.3); SODIUM, SERUM 145 MMOL/L (135-148); WHITE BLOOD CELLS 42.9 10/3/uL (4.5-10.5)
[2017-01-26 03:51] LABS: BAND NEUTROPHILS 6 %; IMMATURE GRANS ABSOLUTE (CALC) 0.86 10/3/uL (0.0-0.11); LYMPHOCYTES 6 %; LYMPHOCYTES ABSOLUTE (CALC) 2.57 10/3/uL (0.67-4.30); MONOCYTES 18 %; MONOCYTES ABSOLUTE (CALC) 7.72 10/3/uL (0.21-1.20); MYELOCYTES 2 %; NEUTROPHILS ABSOLUTE (CALC) 31.75 10/3/uL (2.02-8.40); PLATELET ESTIMATE DEC (ADEQUATE); SEGMENTED NEUTROPHIL (0) 68 %; TOTAL NUCLEATED CELLS 100
[2017-01-26 03:52] LABS: MACROCYTES 1+ (5-10/OIF) (0-5/OIF); RBC MORPHOLOGY ABN (NORMAL)
[2017-01-26 15:17] LABS: ASCORBIC ACID (UR NOT ORDER) NEG (NEG); BILIRUBIN, URINE NEGATIVE (NEG); KETONE, URINE NEGATIVE (NEG); LEUKOCYTE ESTERASE(NOT OR NEG (NEG); WBC (NOT ORDERED) (RFLEX) 1 (0-5)
[2017-01-27 04:48] LABS: HEMATOCRIT 24.7 % (40.0-51.0); HEMOGLOBIN 8.2 g/dL (13.6-17.8); MEAN CORPUS HGB CONC 33.2 g/dL (32.0-36.0); MEAN CORPUSCULAR HEMOGLOB 33.5 pg (26.0-34.0); MEAN CORPUSCULAR VOLUME 100.8 fL (80-100); RBC DISTRIBUTION WIDTH 20.9 % (12.0-16.0); RED CELL COUNT 2.45 10/6/uL (4.7-6.1)
[2017-01-27 04:49] LABS: MANUAL DIFF YES %; PLATELET COUNT 75 10/3/uL (150-400)
[2017-01-27 05:04] LABS: BUN (BLOOD UREA NITROGEN) 12 MG/DL (6-23); CHLORIDE, SERUM 107 MMOL/L (96-112); CO2 (CARBON DIOXIDE) 31 MMOL/L (24-34); CREATININE 0.93 MG/DL (0.70-1.30); GFR AFRICAN AMERICAN 99 ML/MIN (>=60); GFR NON AFRICAN AMERICAN 85 ML/MIN (>=60); GLUCOSE, SERUM 122 MG/DL (60-99); POTASSIUM, SERUM 4.1 MMOL/L (3.5-5.3); SODIUM, SERUM 143 MMOL/L (135-148)
[2017-01-27 05:25] LABS: BAND NEUTROPHILS 14 %; EOSINOPHILS 1 %; EOSINOPHILS ABSOLUTE (CALC) 0.42 10/3/uL (0.0-0.53); IMMATURE GRANS ABSOLUTE (CALC) 3.78 10/3/uL (0.0-0.11); IMMATURE MONONUCLEAR 1 % (0); LYMPHOCYTES 7 %; LYMPHOCYTES ABSOLUTE (CALC) 2.94 10/3/uL (0.67-4.30); MACROCYTES 1+ (5-10/OIF) (0-5/OIF); METAMYELOCYTES 9 %; MONOCYTES 3 %; MONOCYTES ABSOLUTE (CALC) 1.26 10/3/uL (0.21-1.20); NEUTROPHILS ABSOLUTE (CALC) 33.18 10/3/uL (2.02-8.40); PLATELET ESTIMATE DEC (ADEQUATE); SEGMENTED NEUTROPHIL (0) 65 %; TOTAL NUCLEATED CELLS 100
[2017-01-27 12:16] LABS: INTERNATIONAL NORMAL RATI 1.7 UNITS (-)
[2017-01-28 02:24] LABS: MEAN CORPUS HGB CONC 33.3 g/dL (32.0-36.0); MEAN CORPUSCULAR HEMOGLOB 33.9 pg (26.0-34.0); MEAN CORPUSCULAR VOLUME 101.7 fL (80-100); MEAN PLATELET VOLUME 9.5 fL (9.2-13.0); NUCLEATED RED BLOOD CELLS 1.2 /100WBC (0-0); PLATELET COUNT 62 10/3/uL (150-400); RBC DISTRIBUTION WIDTH 20.5 % (12.0-16.0); RED CELL COUNT 2.36 10/6/uL (4.7-6.1)
[2017-01-28 02:27] LABS: INTERNATIONAL NORMAL RATI 1.5 UNITS (-); PARTIAL THROMBO TIME 34.3 SEC (22.5-37.2); PROTIME (NOT ORD) 18.2 SEC (12.0-14.5)
[2017-01-28 02:29] LABS: D-DIMER QUANTITATIVE 3.85 ug/mLFEU (< 0.50)
[2017-01-28 02:36] LABS: BUN (BLOOD UREA NITROGEN) 13 MG/DL (6-23); CHLORIDE, SERUM 107 MMOL/L (96-112); CO2 (CARBON DIOXIDE) 28 MMOL/L (24-34); CREATININE 0.95 MG/DL (0.70-1.30); GFR AFRICAN AMERICAN 96 ML/MIN (>=60); GFR NON AFRICAN AMERICAN 83 ML/MIN (>=60); GLUCOSE, SERUM 123 MG/DL (60-99); POTASSIUM, SERUM 3.9 MMOL/L (3.5-5.3); SODIUM, SERUM 144 MMOL/L (135-148); TROPONIN I <0.02 NG/ML (<0.05)
[2017-01-28 02:37] LABS: MANUAL DIFF YES %; WHITE BLOOD CELLS 46.7 10/3/uL (4.5-10.5)
[2017-01-28 02:51] LABS: FIBRINOGEN 93 MG/DL (230-462)
[2017-01-28 02:58] LABS: BAND NEUTROPHILS 11 %; EOSINOPHILS 1 %; LYMPHOCYTES 9 %; METAMYELOCYTES 10 %; MONOCYTES 6 %; MYELOCYTES 1 %; SEGMENTED NEUTROPHIL (0) 62 %; TOTAL NUCLEATED CELLS 100
[2017-01-28 02:59] LABS: ANISOCYTOSIS 1+ (5-10/OIF) (0-5/OIF); MACROCYTES 1+ (5-10/OIF) (0-5/OIF); PLATELET ESTIMATE DEC (ADEQUATE)
[2017-01-28 03:00] LABS: POLYCHROMASIA 1+ (2-5/OIF) (0-1/OIF)
[2017-01-29 05:26] LABS: INTERNATIONAL NORMAL RATI 1.5 UNITS (-); PARTIAL THROMBO TIME 34.3 SEC (22.5-37.2); PROTIME (NOT ORD) 18.2 SEC (12.0-14.5)
[2017-01-29 05:29] LABS: HEMATOCRIT 23.9 % (40.0-51.0); HEMOGLOBIN 8.1 g/dL (13.6-17.8); MEAN CORPUS HGB CONC 33.9 g/dL (32.0-36.0); MEAN CORPUSCULAR HEMOGLOB 34.6 pg (26.0-34.0); MEAN CORPUSCULAR VOLUME 102.1 fL (80-100); MEAN PLATELET VOLUME 10.4 fL (9.2-13.0); NUCLEATED RED BLOOD CELLS 1.6 /100WBC (0-0); PLATELET COUNT 72 10/3/uL (150-400); RBC DISTRIBUTION WIDTH 20.8 % (12.0-16.0); RED CELL COUNT 2.34 10/6/uL (4.7-6.1)
[2017-01-29 05:30] LABS: ALBUMIN 3.9 G/DL (3.5-5.0); BUN (BLOOD UREA NITROGEN) 14 MG/DL (6-23); CALCIUM, SERUM 9.1 MG/DL (8.5-10.4); CHLORIDE, SERUM 106 MMOL/L (96-112); CO2 (CARBON DIOXIDE) 27 MMOL/L (24-34); CREATININE 0.95 MG/DL (0.70-1.30); GFR AFRICAN AMERICAN 96 ML/MIN (>=60); GFR NON AFRICAN AMERICAN 83 ML/MIN (>=60); MANUAL DIFF YES %; POTASSIUM, SERUM 4.1 MMOL/L (3.5-5.3); SGOT(AST) 25 U/L (5-40); SGPT(ALT) 26 U/L (5-65); SODIUM, SERUM 142 MMOL/L (135-148); TOTAL BILIRUBIN 0.5 MG/DL (0-1.2); TOTAL PROTEIN 6.9 G/DL (6.0-8.5); WHITE BLOOD CELLS 48.2 10/3/uL (4.5-10.5)
[2017-01-29 05:31] LABS: A/G RATIO 1.3 (0.7-1.9); ALKALINE PHOSPHATASE 121 U/L (45-117); GLUCOSE, SERUM 97 MG/DL (60-99)
[2017-01-29 05:36] LABS: D-DIMER QUANTITATIVE 7.66 ug/mLFEU (< 0.50)
[2017-01-29 05:38] LABS: FIBRINOGEN 96 MG/DL (230-462)
[2017-01-29 06:10] LABS: BAND NEUTROPHILS 12 %; IMMATURE GRANS ABSOLUTE (CALC) 3.86 10/3/uL (0.0-0.11); LYMPHOCYTES 7 %; LYMPHOCYTES ABSOLUTE (CALC) 3.37 10/3/uL (0.67-4.30); MACROCYTES 1+ (5-10/OIF) (0-5/OIF); METAMYELOCYTES 7 %; MONOCYTES 2 %; MONOCYTES ABSOLUTE (CALC) 0.96 10/3/uL (0.21-1.20); MYELOCYTES 1 %; NEUTROPHILS ABSOLUTE (CALC) 40.01 10/3/uL (2.02-8.40); SEGMENTED NEUTROPHIL (0) 71 %; STOMATOCYTES 1+ (3-10/OIF) (0-2/OIF); TEARDROP SHAPED RBCS OCC (0-2/OIF); TOTAL NUCLEATED CELLS 100
[2017-01-29 06:11] LABS: PLATELET ESTIMATE DEC (ADEQUATE)
[2017-01-30 23:19] LABS: SPECIMEN TYPE SER (()); TOXOPLASMA GONDII BY PCR Not Detected (())
[2017-02-01 16:16] LABS: HISTOPLASMA AG SOURCE Urine (()); HISTOPLASMA ANTIGEN None detected (())
[2017-02-02 00:09] LABS: CYSTICERCUS ANTIBODY <0.90 (<0.90)
[2017-02-04 09:53] LABS: BLASTOMYCES DERMATITIDIS AG None detected ng/mL (<0.20)
== END 2017-01-29 21:27 | disposition expired | DRG 54 ==
LOC: 4EA 15:37
PROVIDERS: Internal Medicine; Internal Medicine Hematology & Oncology; Internal Medicine Infectious Disease; Nurse Practitioner Family
PROC: 30233N0 Transfusion of Autologous Red Blood Cells into Peripheral Vein, Percutaneous Approach (ICD-10-PCS; principal; 2017-01-25)
PROC: 30233R0 Transfusion of Autologous Platelets into Peripheral Vein, Percutaneous Approach (ICD-10-PCS; 2017-01-26)
PROC: 30233K1 Transfusion of Nonautologous Frozen Plasma into Peripheral Vein, Percutaneous Approach (ICD-10-PCS; 2017-01-26)
DX: C79.31 Secondary malignant neoplasm of brain (principal); D65 Disseminated intravascular coagulation [defibrination syndrome]; G93.6 Cerebral edema; C92.10 Chronic myeloid leukemia, BCR/ABL-positive, not having achieved remission; Z51.5 Encounter for palliative care; H53.2 Diplopia; I25.10 Atherosclerotic heart disease of native coronary artery without angina pectoris; Z95.5 Presence of coronary angioplasty implant and graft; D64.9 Anemia, unspecified; R16.1 Splenomegaly, not elsewhere classified
CPT/HCPCS: 36415; 70450; 70551-52; 71260; 74177; 80048; 80053; 81001; 83735; 84484; 85025; 85379; 85384; 85610; 85730; 86682; 86850; 86900; 86901; 86920; 87040; 87327; 87385; 87389; 87449; 87798; 93005; A9270-GY; J2270; P9016; P9035; P9037; P9059; Q9967